=== PATIENT | female | born 1990 | race Caucasian/White ===

== ENCOUNTER 2022-03-12 20:59 | Emergency (ER) | payer BC, OTHER ==
[~2022-03-12] VITALS: Ht 160 cm; Wt 83.9 kg
[2022-03-12 21:19] VITALS: BP 142/89
--- NOTE | 2022-03-12 21:56 | NUR ---
Blood for labwork drawn from left arm per wire frame dipper. Patient tolerated well.
[2022-03-12 22:06] LABS: BASOPHILS # (AUTO) 0.1 K/uL (0.00-0.22); BASOPHILS % (AUTO) 0.6 % (0.0-2.0); EOSINOPHILS # (AUTO) 0.2 K/uL (0-0.4); EOSINOPHILS % (AUTO) 1.8 % (0.0-4.0); HEMATOCRIT 44.4 % (36-48); HEMOGLOBIN 14.7 g/dL (12.0-16.0); LYMPHOCYTES # (AUTO) 2.3 K/uL (2.5-16.5); LYMPHOCYTES % (AUTO) 24.8 % (20.5-51.1); MEAN CORPUSCULAR HEMOGLOBIN 30 pg (27-31); MEAN CORPUSCULAR HGB CONC 33 g/dL (33-37); MEAN CORPUSCULAR VOLUME 89.8 fL (80-94); MONOCYTES # (AUTO) 0.8 K/uL (0.8-1.0); NEUTROPHILS # (AUTO) 6.1 K/uL (1.8-7.7); NEUTROPHILS % (AUTO) 64.8 % (42.2-75.2); PLATELET COUNT (AUTO) 360 K/uL (140-450); RED BLOOD CELL COUNT(AUTO) 4.94 MIL/uL (4.20-5.40); RED CELL DISTRIBUTION WIDTH 14.2 % (11.6-13.7); WHITE BLOOD COUNT (AUTO) 9.5 K/uL (4.8-10.8)
[2022-03-12 22:20] LABS: ALBUMIN 3.9 g/dL (3.4-5.0); ANION GAP 11.2 (8-16); CARBON DIOXIDE 28.8 mmol/L (21-32); CREATININE 0.8 mg/dL (0.6-1.3); TOTAL BILIRUBIN 0.2 mg/dL (0.0-1.0)
--- NOTE | 2022-03-12 22:31 | NUR ---
PT AMBULATED TO BED#7
[2022-03-12 22:32] LABS: APPEARANCE,URINE HAZY (CLEAR); BILIRUBIN,URINE NEGATIVE (NEGATIVE); BLOOD, URINE 1+ (NEGATIVE); COLOR,URINE YELLOW (YELLOW); LEUKOCYTE ESTERASE ,URINE 1+ (NEGATIVE); NITRITE, URINE NEGATIVE (NEGATIVE); UGLUCOSE NEGATIVE (NEGATIVE)
--- NOTE | 2022-03-12 22:36 | NUR ---
patient cleared for discharge by . Discharge instructions and explained by Dr. Clifford.
[2022-03-12 22:52] LABS: RBC,URINE 0-5 /HPF (0-5); WBC,URINE 0-5 /HPF (0-5)
[2022-03-12 22:53] LABS: URINE AMORPHOUS URATE 1+ /HPF (None Seen)
== END 2022-03-12 22:36 | disposition home or self-care (01) ==
LOC: MED 20:59
DX: O26.811 Pregnancy related exhaustion and fatigue, first trimester (principal); Z3A.01 Less than 8 weeks gestation of pregnancy
CPT/HCPCS: 36415; 80053; 81001; 81025; 84702; 85025; 86900; 86901; 87086; 99283

== ENCOUNTER 2022-04-25 01:49 | Emergency (ER) | payer BC ==
[~2022-04-25] VITALS: Ht 160 cm; Wt 83.9 kg
[2022-04-25 02:01] VITALS: BP 144/94
--- NOTE | 2022-04-25 02:07 | NUR ---
TO LOBBY FOLLOWING TRIAGE AND OBTAINING UA
[2022-04-25 03:22] LABS: BASOPHILS # (AUTO) 0.1 K/uL (0.00-0.22); BASOPHILS % (AUTO) 0.9 % (0.0-2.0); EOSINOPHILS # (AUTO) 0.1 K/uL (0-0.4); EOSINOPHILS % (AUTO) 1.2 % (0.0-4.0); HEMOGLOBIN 14.1 g/dL (12.0-16.0); LYMPHOCYTES # (AUTO) 2.3 K/uL (2.5-16.5); LYMPHOCYTES % (AUTO) 24.9 % (20.5-51.1); MEAN CORPUSCULAR HEMOGLOBIN 30 pg (27-31); MEAN CORPUSCULAR HGB CONC 33 g/dL (33-37); MEAN CORPUSCULAR VOLUME 91.6 fL (80-94); MONOCYTES # (AUTO) 0.7 K/uL (0.8-1.0); MONOCYTES % (AUTO) 7.3 % (1.7-9.3); NEUTROPHILS # (AUTO) 6.1 K/uL (1.8-7.7); NEUTROPHILS % (AUTO) 65.7 % (42.2-75.2); PLATELET COUNT (AUTO) 329 K/uL (140-450); RED CELL DISTRIBUTION WIDTH 14.4 % (11.6-13.7); WHITE BLOOD COUNT (AUTO) 9.3 K/uL (4.8-10.8)
[2022-04-25 03:50] LABS: ALBUMIN 3.5 g/dL (3.4-5.0); ANION GAP 10.9 (8-16); CARBON DIOXIDE 28.3 mmol/L (21-32); CREATININE 0.7 mg/dL (0.6-1.3); POTASSIUM 4.2 mmol/L (3.5-5.1); TOTAL BILIRUBIN 0.2 mg/dL (0.0-1.0)
[2022-04-25 05:18] LABS: BILIRUBIN,URINE NEGATIVE (NEGATIVE); BLOOD, URINE TRACE-I (NEGATIVE); COLOR,URINE YELLOW (YELLOW); LEUKOCYTE ESTERASE ,URINE NEGATIVE (NEGATIVE); NITRITE, URINE NEGATIVE (NEGATIVE); UGLUCOSE NEGATIVE (NEGATIVE)
[2022-04-25 05:28] LABS: APPEARANCE,URINE SLIGHTLY HAZY (CLEAR)
[2022-04-25 05:30] LABS: RBC,URINE 0-5 /HPF (0-5); WBC,URINE NONE SEEN /HPF (0-5)
[2022-04-25 05:31] LABS: PROTHROMBIN TIME 9.5 secs (10.8-13.4)
--- NOTE | 2022-04-25 06:22 | NUR ---
Patient discharged with v/s stable. Written and verbal after care instructions given and explained. Patient verbalized understanding. Ambulatory with steady gait. All questions addressed prior to discharge. Advised to follow up with PMD.
== END 2022-04-25 06:20 | disposition home or self-care (01) ==
LOC: MED 01:49
DX: N93.8 Other specified abnormal uterine and vaginal bleeding (principal)
CPT/HCPCS: 36415; 76856; 80053; 81001; 85025; 85610; 85730; 86900; 86901; 99284; Q0092

== ENCOUNTER 2022-09-10 15:14 | Emergency (ER) | payer BC ==
[~2022-09-10] VITALS: Ht 162.6 cm; Wt 70.3 kg
[2022-09-10 15:21] VITALS: BP 137/83
--- NOTE | 2022-09-10 15:21 | NUR ---
PT RECEIVED, CARE ASSUMED. PT PRESENTS SELF TO ER FOR EVALUATION OF VAG BLEED. PT DENIES ANY PAIN. COLLECTED URINE SAMPLE. AWAITING TO BE SEEN BY
--- NOTE | 2022-09-10 15:29 | NUR ---
Patient being evaluated by physician at bedside.
[2022-09-10 15:49] LABS: BASOPHILS # (AUTO) 0.1 K/uL (0.00-0.22); BASOPHILS % (AUTO) 0.7 % (0.0-2.0); EOSINOPHILS # (AUTO) 0.1 K/uL (0-0.4); EOSINOPHILS % (AUTO) 0.8 % (0.0-4.0); HEMATOCRIT 41.2 % (36-48); LYMPHOCYTES # (AUTO) 2.4 K/uL (2.5-16.5); LYMPHOCYTES % (AUTO) 22.8 % (20.5-51.1); MEAN CORPUSCULAR HEMOGLOBIN 31 pg (27-31); MEAN CORPUSCULAR HGB CONC 34 g/dL (33-37); MONOCYTES # (AUTO) 0.8 K/uL (0.8-1.0); MONOCYTES % (AUTO) 7.6 % (1.7-9.3); NEUTROPHILS # (AUTO) 7.2 K/uL (1.8-7.7); NEUTROPHILS % (AUTO) 68.1 % (42.2-75.2); PLATELET COUNT (AUTO) 348 K/uL (140-450); RED BLOOD CELL COUNT(AUTO) 4.58 MIL/uL (4.20-5.40); RED CELL DISTRIBUTION WIDTH 13.9 % (11.6-13.7); WHITE BLOOD COUNT (AUTO) 10.6 K/uL (4.8-10.8)
[2022-09-10 15:50] LABS: APPEARANCE,URINE SL CLOUDY (CLEAR); BILIRUBIN,URINE NEGATIVE (NEGATIVE); BLOOD, URINE 2+ (NEGATIVE); COLOR,URINE AMBER (YELLOW); LEUKOCYTE ESTERASE ,URINE 2+ (NEGATIVE); NITRITE, URINE NEGATIVE (NEGATIVE); PH,URINE 6.5 (5.0-9.0); UGLUCOSE NEGATIVE (NEGATIVE)
[2022-09-10 16:07] LABS: OTHER CASTS, URINE None Seen /LPF (None Seen)
[2022-09-10 16:13] LABS: ANION GAP 10.9 (8-16); CARBON DIOXIDE 24.6 mmol/L (21-32); CREATININE 0.9 mg/dL (0.6-1.3); POTASSIUM 3.5 mmol/L (3.5-5.1); TOTAL BILIRUBIN 0.3 mg/dL (0.0-1.0)
[2022-09-10] MEDS ORDERED: PNV91TAB10 PO (17:28)
[2022-09-10] MEDS ORDERED: CEPH-588 PO (17:28)
--- NOTE | 2022-09-10 17:39 | NUR ---
Patient discharged with v/s stable. Written and verbal after care instructions given. Patient alert, oriented and verbalized understanding of instructions. Ambulatory with steady gait. All questions addressed prior to discharge. ID band removed. Patient advised to follow up with PMD. Rx of AND KEFLEX given. Opportunity to ask questions provided and answered.
--- NOTE | 2022-09-10 17:40 | NUR ---
The patient's care was reviewed and supervised by Ioana Burns, RN, RN.
== END 2022-09-10 17:39 | disposition home or self-care (01) ==
LOC: MED 15:14
DX: O20.0 Threatened abortion (principal); O23.41 Unspecified infection of urinary tract in pregnancy, first trimester; N39.0 Urinary tract infection, site not specified; Z3A.01 Less than 8 weeks gestation of pregnancy
CPT/HCPCS: 36415; 76801; 80053; 81001; 84702; 85025; 86900; 86901; 87086; 99284; Q0092

== ENCOUNTER 2022-12-18 15:22 | Emergency (ER) | payer BC ==
[~2022-12-18] VITALS: Ht 165.1 cm; Wt 95.3 kg
[~2022-12-18 15:22] MED LIST: CEPH-588 PO; PNV91TAB10 PO
[2022-12-18 15:32] VITALS: BP 142/97
--- NOTE | 2022-12-18 15:44 | NUR ---
32 YEARS OLD FEMALE WALK IN TO ER C/O FEELING DIZZY, NO HEADACHE, NO VISIONS CHANGES, NO HEAD TRAUMA.
[2022-12-18] MEDS ORDERED: MECL-303 PO (16:07)
[2022-12-18] MEDS ORDERED: MUC600 PO (16:07)
--- NOTE | 2022-12-18 16:22 | NUR ---
PATIENT SEEN EVALUATED BY MD CONDITION STABLE D/C HOME WITH INSTRUCTIONS AFTER CARE REVIEWED UNDERSTOOD LEFT ER STABLE WITH STEADY GAIT.
== END 2022-12-18 16:20 | disposition home or self-care (01) ==
LOC: MED 15:22
DX: R42 Dizziness and giddiness (principal); Z79.899 Other long term (current) drug therapy
CPT/HCPCS: 99282

== ENCOUNTER 2023-09-19 01:05 | Emergency (ER) | payer BC ==
[~2023-09-19] VITALS: Ht 160 cm; Wt 83.9 kg
[~2023-09-19 01:05] MED LIST changes: +MECL-303 PO; +MUC600 PO
[2023-09-19 01:26] VITALS: BP 151/94; PULSE 102; RESP 18; TEMP 97.4; O2SAT 97
[2023-09-19 01:46] LABS: APPEARANCE,URINE SL CLOUDY (CLEAR); BILIRUBIN,URINE NEGATIVE (NEGATIVE); BLOOD, URINE TRACE-I (NEGATIVE); COLOR,URINE YELLOW (YELLOW); LEUKOCYTE ESTERASE ,URINE 2+ (NEGATIVE); NITRITE, URINE NEGATIVE (NEGATIVE); PROTEIN,URINE NEGATIVE (NEGATIVE); UGLUCOSE NEGATIVE (NEGATIVE); UROBILINOGEN,URINE 0.2 EU/dL (0.2 - 1)
[2023-09-19 01:55] LABS: BACTERIA,URINE >30 (MANY) /HPF (None Seen); MUCUS,URINE 1+ /LPF (None Seen); WBC,URINE 16-25 (MOD) /HPF (0-5)
[2023-09-19] MEDS ORDERED: KETOROLAC 30 MG/ML VIAL IVP ONE (02:05)
[2023-09-19] MEDS ORDERED: NACL 0.9% 1,000 ML IV ONE (02:05)
[2023-09-19] MEDS ORDERED: ONDANSETRON 4 MG/2 ML VIAL IVP ONE (02:05)
[2023-09-19 02:39] LABS: BASOPHILS # (AUTO) 0.1 K/uL (0.00-0.22); BASOPHILS % (AUTO) 0.7 % (0.0-2.0); EOSINOPHILS # (AUTO) 0.1 K/uL (0-0.4); EOSINOPHILS % (AUTO) 0.5 % (0.0-4.0); HEMATOCRIT 44.1 % (36-48); HEMOGLOBIN 15.1 g/dL (12.0-16.0); LYMPHOCYTES # (AUTO) 2.5 K/uL (2.5-16.5); LYMPHOCYTES % (AUTO) 23.2 % (20.5-51.1); MEAN CORPUSCULAR HEMOGLOBIN 31 pg (27-31); MEAN CORPUSCULAR HGB CONC 34 g/dL (33-37); MEAN CORPUSCULAR VOLUME 90.8 fL (80-94); MONOCYTES # (AUTO) 0.7 K/uL (0.8-1.0); MONOCYTES % (AUTO) 6.7 % (1.7-9.3); NEUTROPHILS # (AUTO) 7.6 K/uL (1.8-7.7); NEUTROPHILS % (AUTO) 68.9 % (42.2-75.2); PLATELET COUNT (AUTO) 368 K/uL (140-450); RED BLOOD CELL COUNT(AUTO) 4.85 MIL/uL (4.20-5.40); RED CELL DISTRIBUTION WIDTH 14.3 % (11.6-13.7)
[2023-09-19 02:48] LABS: ANION GAP 16.7 (8-16); CALCIUM 9.3 mg/dL (8.5-10.1); CARBON DIOXIDE 24.8 mmol/L (21-32); CREATININE 0.6 mg/dL (0.6-1.3); POTASSIUM 4.5 mmol/L (3.5-5.1)
[2023-09-19 02:54] LABS: ALBUMIN 3.8 g/dL (3.4-5.0); BILIRUBIN,DIRECT 0.1 mg/dL (0.0-0.3); TOTAL BILIRUBIN 0.7 mg/dL (0.0-1.0); TOTAL PROTEIN, SERUM 9.4 g/dL (6.4-8.2)
[2023-09-19] MEDS ORDERED: cefTRIAXone 1,000 MG VIAL ONE (05:00)
[2023-09-19] MEDS ORDERED: CEPH-588 PO (05:00)
[2023-09-19] MEDS ORDERED: NAPR-54 PO (05:00)
== END 2023-09-19 06:21 | disposition home or self-care (01) ==
LOC: MED 01:05
DX: N39.0 Urinary tract infection, site not specified (principal); M54.50 Low back pain, unspecified; Z79.899 Other long term (current) drug therapy
CPT/HCPCS: 36415; 74176; 80048; 80076; 81001; 81025; 83690; 85025; 87086; 96361; 96365; 99285; J0696; J1885; J2405; J7030

== ENCOUNTER 2023-11-24 16:35 | Emergency (ER) | payer BC ==
[~2023-11-24] VITALS: Ht 160 cm; Wt 83.9 kg
[~2023-11-24 16:35] MED LIST changes: +NAPR-54 PO
[2023-11-24 16:52] VITALS: BP 135/83; PULSE 128; RESP 19; TEMP 97.9; O2SAT 97
== END 2023-11-24 20:35 | disposition left against medical advice (07) ==
LOC: MED 16:35
DX: N64.4 Mastodynia (principal); Z53.21 Procedure and treatment not carried out due to patient leaving prior to being seen by health care provider
CPT/HCPCS: 81025; 99281